=== PATIENT | female | born 1990 | race Caucasian/White ===

== ENCOUNTER 2016-12-02 10:19 | Outpatient (CLI) | payer OTHER | END 2016-12-02 23:00 | LOC: LAB SRH 10:19 | DX: Z34.83 Encounter for supervision of other normal pregnancy, third trimester (principal) | CPT/HCPCS: 90004; 90039; 90074; 90078; 90261; 90364; 90599; 90600; 90605; 90606; 90710; 90851; 92863; 93140; 98480; 99777 ==

== ENCOUNTER 2017-01-03 11:56 | Outpatient (CLI) | payer OTHER ==
--- NOTE | 2017-01-03 13:26 | DIAGNOSTIC IMAGING REPORT ---
PROCEDURE: US OB RE-EVALUATION INDICATION: SIZE GRATER THAN DATES TECHNIQUE: Clancy scale, color and spectral Doppler images of the gravid uterus. COMPARISON: OB ultrasound 09/19/2016 FINDINGS: Single intrauterine with vertex presentation, anterior placenta without previa and heart rate 121 bpm. JENNIFER measures 12.1 cm (30th percentile). Cervix not well visualized. Stomach, kidneys and bladder are grossly normal. Cord ratios 2.03 and 2.3, normal. BPD 8.6 cm, 66-rfre-1-day; head circumference 31.4 cm, 35 weeks 2 days; abdominal circumference 32.1 cm, 36 weeks; femur length 6.5 cm, 33 weeks 4 days. Composite age 35 weeks. DEBBIE 02/07/2017. Estimated weight 2606 g plus/ minus 391 g (5.75 pounds). IMPRESSION: 1. Single live intrauterine , vertex, 35 weeks 2. DEBBIE 02/07/2017, normal interval growth
--- NOTE | 2017-01-03 13:26 | DIAGNOSTIC IMAGING REPORT ---
PROCEDURE: US OB RE-EVALUATION INDICATION: SIZE GRATER THAN DATES TECHNIQUE: Clancy scale, color and spectral Doppler images of the gravid uterus. COMPARISON: OB ultrasound 09/19/2016 FINDINGS: Single intrauterine with vertex presentation, anterior placenta without previa and heart rate 121 bpm. JENNIFER measures 12.1 cm (30th percentile). Cervix not well visualized. Stomach, kidneys and bladder are grossly normal. Cord ratios 2.03 and 2.3, normal. BPD 8.6 cm, 43-fofr-2-day; head circumference 31.4 cm, 35 weeks 2 days; abdominal circumference 32.1 cm, 36 weeks; femur length 6.5 cm, 33 weeks 4 days. Composite age 35 weeks. DEBBIE 02/07/2017. Estimated weight 2606 g plus/ minus 391 g (5.75 pounds). IMPRESSION: 1. Single live intrauterine , vertex, 35 weeks 2. DEBBIE 02/07/2017, normal interval growth
== END 2017-01-03 23:00 ==
LOC: US SRH 11:56
DX: Z34.93 Encounter for supervision of normal pregnancy, unspecified, third trimester (principal); Z3A.35 35 weeks gestation of pregnancy

== ENCOUNTER 2017-02-02 07:07 | Inpatient (IN) | payer OTHER ==
[2017-02-02] VITALS (9 sets, daily range): BP systolic 108–140; BP diastolic 55–75
[~2017-02-02] VITALS: Ht 152.4 cm; Wt 88.5 kg
[2017-02-02] MEDS ORDERED: ZOFRAN ODT4 MG PO (09:11)
[2017-02-02] MEDS ORDERED: METHADONE HCL10 MG PO (09:13)
[2017-02-03 07:55] VITALS: BP 118/56
[2017-02-03 15:40] VITALS: BP 118/68
--- NOTE | 2017-02-03 17:07 | Provider's Discharge Care Plan ---
Problem, Goal, Plan Problem List 1. Active labor at term 2. Vaginal delivery Goals: Improve disease control Instructions: Follow up as needed
--- NOTE | 2017-02-03 17:07 | Provider's Discharge Care Plan ---
Problem, Goal, Plan Problem List 1. Active labor at term 2. Vaginal delivery Goals: Improve disease control Instructions: Follow up as needed
== END 2017-02-03 22:48 | disposition home or self-care (01) | DRG 560 ==
LOC: OB SRH 07:07
PROVIDERS: ADMIT Obstetrics & Gynecology
PROC: 0KQM0ZZ Repair Perineum Muscle, Open Approach (ICD-10-PCS; principal; 2017-02-02)
PROC: 10E0XZZ Delivery of Products of Conception, External Approach (ICD-10-PCS; principal; 2017-02-02)
DX: O70.1 Second degree perineal laceration during delivery (principal); Z37.0 Single live birth; Z3A.39 39 weeks gestation of pregnancy; O99.324 Drug use complicating childbirth; F11.20 Opioid dependence, uncomplicated
CPT/HCPCS: 40011; 83411; 84038; 90001; 90074; 90155; 91004; 91162; 91163; 91295